=== PATIENT | male | born 1950 | race Caucasian/White ===

== ENCOUNTER → 2016-11-03 | Outpatient (CLI) | payer MEDICARE ==
[~2016-11-03] MED LIST: ASPI81 PO; COZA50TA PO; LASI20TA PO; NIAS10004 PO; ROSU40 PO; SPIR25TA PO; TOPR25TA2 PO
[2016-11-03 17:00] LABS: FREE T4 0.93 NG/DL (0.76-1.46); INDIRECT BILIRUBIN 0.3 MG/DL (0.0-0.8); TOTAL BILIRUBIN ADULT 0.4 MG/DL (0.2-1.0)
== END ==
LOC: CLAB 16:01
PROVIDERS: ATTEND Internal Medicine Cardiovascular Disease
DX: R53.83 Other fatigue (principal); E78.5 Hyperlipidemia, unspecified
CPT/HCPCS: 36415; 80076; 84439; 84443

== ENCOUNTER → 2016-11-19 | Outpatient (CLI) | payer MEDICARE ==
[2016-11-19 11:17] LABS: HDL CHOLESTEROL 33.2 MG/DL (40.0-60.0)
[2016-11-19 11:18] LABS: LDL CHOLESTEROL ND MG/DL (0-99)
== END ==
LOC: CLAB 10:35
PROVIDERS: ATTEND Internal Medicine Cardiovascular Disease
DX: E78.5 Hyperlipidemia, unspecified (principal)
CPT/HCPCS: 36415; 80061